=== PATIENT | female | born 1995 | race Caucasian/White ===

== ENCOUNTER 2016-06-25 19:42 | Emergency (ER) | payer OTHER ==
[2016-06-25] MEDS ORDERED: ZOVIRAX PO (19:53)
[2016-06-25 20:44] LABS: URINE SOURCE CLEAN CATCH
[2016-06-25 20:46] LABS: URINE APPEARANCE CLEAR; URINE BILIRUBIN NEG (NEG); URINE BLOOD 2+ (NEG); URINE COLOR YELLOW; URINE GLUCOSE NEG (NORM); URINE KETONE NEG (NEG); URINE LEUKOCYTE ESTERASE NEG (NEG); URINE NITRATE NEG (NEG); URINE PH 7.5 (5-8); URINE PROTEIN NEG (NEG); URINE UROBILINOGEN 0.2 MG/DL (NORM)
[2016-06-25 20:56] LABS: MICRO INDICATED? YES
[2016-06-25 20:57] LABS: CULTURE INDICATED? NO; URINE BACTERIA NEG (NEG); URINE SQUAMOUS EPITHELIAL CELL OCCAS /[HPF]; URINE TRANSITIONAL EPI CELLS FEW /[HPF]; URINE WBC 0-2 /[HPF] (0-5)
[2016-06-29 23:44] LABS: CHLAMYDIA TRACH Not Detected (Not Detected); N GONOR Not Detected (Not Detected)
== END 2016-06-25 21:36 | disposition home or self-care (01) ==
LOC: SED 19:42
DX: Z20.2 Contact with and (suspected) exposure to infections with a predominantly sexual mode of transmission (principal); F17.200 Nicotine dependence, unspecified, uncomplicated; Z79.899 Other long term (current) drug therapy; R10.2 Pelvic and perineal pain
CPT/HCPCS: 81003; 84703; 87210; 87491; 87591; 87808; 87905; 96372; 99284; J0696